=== PATIENT | female | born 1985 | race Native Hawaiian/Other Pacific Islander ===

== ENCOUNTER 2016-09-25 06:12 | Inpatient (IN) | payer MEDICAID ==
[2016-09-25 06:18] VITALS: BMI 33.5
[2016-09-25] MEDS: Lactated Ringer's 1,000 ML IV SCH ×2 (06:45→19:55)
[2016-09-25] MEDS ORDERED: cefOXitin IV 2 gm in Dextrose 2 GM/50 ML BAG IVPB ONE ×2 (06:49→08:10)
[2016-09-25] MEDS ORDERED: Sodium Citrate/Citric Acid 15 ml Sol PO ONE (06:49)
--- NOTE | 2016-09-25 06:57 | OBADHP ---
Datetime: 09/25/2016 06:52 Admit Comment, IP Provider: at 39weeks her for schehuled c/s, no ctxs, vb, lof,+fm. obhx 1 x sab, 1 x c/s pmh den med pnv all nkda psh c/s soch de a/p at 39weeks schuled repeat c/s and btl npo/ivf labs pain management skin anibiotics anthesia aware dr [place] will take informed consent Pelvic Type - PN: Adequate Extremities - PN: Normal Abdomen - PN: Normal Back - PN: Normal Breast - PN: Normal Lungs - PN: Normal Heart - PN: Normal Thyroid - PN: Normal Neurologic - PN: Normal HEENT - PN: Normal General - PN: Normal FHR - Baseline A Provider: 130 Contraction Comments Provider: occ Comments, ACOG Physical Exam: gravid,non gemma ext no edema,no calf ten IP Hx Assessment: The History has been Reviewed and is Current Vital Signs Provider: Reviewed; Within Normal Limits IP Chief Complaint: Scheduled Section NICHD Variability Prov Fetus A: Moderate 6-25bpm NICHD Accel Fetus A IP Provider: [id number] FHR Category Provider Fetus A: Category I Genitourinary Exam: Normal DTRs - PN: Normal EGA AdmitDate IP: 39.0 IP Adm Impression: Term, intrauterine IP Admit Plan: Admit to unit; Initiate Section protocol
[2016-09-25 07:47] LABS: INR 0.9; PARTIAL THROMBOPLASTIN TIME 31 SECONDS (21-34)
[2016-09-25 07:52] LABS: CHLORIDE 103 mmol/L (98-107); POTASSIUM 3.7 mmol/L (3.6-5.2); SODIUM 135 mmol/L (132-148)
[2016-09-25 07:54] LABS: AST/SGOT 27 U/L (14-36); BILIRUBIN,DIRECT 0.5 mg/dL (0.0-0.4); BILIRUBIN,TOTAL 0.8 mg/dL (0.2-1.3); CARBON DIOXIDE 22 mmol/L (22-30); GFR AFRICAN-AMERICAN > 60
[2016-09-25 07:55] LABS: ALKALINE PHOSPHATASE 105 U/L (38-126); ALT/SGPT 15 U/L (9-52); BLOOD UREA NITROGEN 8 mg/dL (7-17); CALCIUM 8.8 mg/dl (8.6-10.4); GLUCOSE,RANDOM 77 mg/dL (65-105); TOTAL PROTEIN 7.5 g/dL (6.3-8.3)
[2016-09-25 07:58] LABS: BASO # 0.1 K/uL (0.0-0.2); BASO % 0.7 % (0.0-2.0); EOS # 0.2 K/uL (0.0-0.7); EOS % 1.8 % (0.0-4.0); HEMATOCRIT 36.2 % (34.0-47.0); LYMPH # 1.5 K/uL (1.0-4.3); LYMPH % 13.4 % (20.0-40.0); MEAN CORPUSCULAR HEMOGLOBIN 31.5 pg (27.0-31.0); MEAN CORPUSCULAR HGB CONC 33.9 g/dL (33.0-37.0); MEAN PLATELET VOLUME 7.6 fL (7.2-11.7); MONO # 0.9 K/uL (0.0-0.8); MONO % 7.9 % (0.0-10.0); NRBC % 0.3 % (0.0-2.0); RED CELL DISTRIBUTION WIDTH 14.1 % (11.5-14.5); WHITE BLOOD COUNT 11.1 K/uL (4.8-10.8)
[2016-09-25] MEDS ORDERED: Sodium Citrate/Citric Acid 15 ml Sol ONE (08:09)
[2016-09-25] MEDS ORDERED: Oxytocin 20 units in LR 2,000 ML IV ONE (08:09)
[2016-09-25 08:15] LABS: MEAN CELL VOLUME 93.1 fL (81.0-99.0)
[2016-09-25 08:18] LABS: RBC URINE 4 /hpf (0-3); URINE BACTERIA RARE (<OCC); URINE BILIRUBIN NEGATIVE (NEGATIVE); URINE BLOOD NEGATIVE (NEGATIVE); URINE COLOR Yellow (YELLOW); URINE GLUCOSE (UA) NORMAL (Normal); URINE KETONE NEGATIVE (NEGATIVE); URINE LEUKOCYTE ESTERASE 2+ Leu/uL (Negative); URINE PROTEIN NEGATIVE (NEGATIVE); URINE UROBILINOGEN NORMAL mg/dL (0.2-1.0); WBC URINE 19 /hpf (0-5)
[2016-09-25] MEDS ORDERED: Morphine 1 mg/ml preservative-free Inj(Duramorph) ONE (08:33)
[2016-09-25] MEDS ORDERED: DiphenhydrAMINE 50 mg/ml Inj IVP PRN (09:29)
[2016-09-25] MEDS ORDERED: HYDROmorphone 0.5 mg/0.5 ml ISec IVP PRN (09:29)
[2016-09-25] MEDS ORDERED: Dexamethasone 4 mg/1 ml IVP PRN (09:29)
[2016-09-25] MEDS ORDERED: Oxycodone/Acetaminophen 5/325 mg Tab PO PRN (10:40)
[2016-09-25] MEDS ORDERED: cefOXitin IV 2 gm in Dextrose 2 GM/50 ML BAG IVPB SCH (10:45)
--- NOTE | 2016-09-25 11:21 | OBDS ---
DELIVERY PERSONNEL Delivery Doctor: Mariela Day MD Scrub Nurse: Misha Briseno RN Section Repairer: Dolores Austin RN/ Matthew Hanson RN Anesthesiologist: Dr. Doe MATERNAL INFORMATION Delivery Anesthesia: Spinal Medications in Delivery: pitocin Maternal Complications: None Provider Comments: Repeat csection and btl done ebl 700cc apgars 9/9 at 1 and 5 min of life patient and stable LABOR SUMMARY EDC: 10/02/2016 00:00 No. Babies in Womb: 1 Attempted: No LABOR INFORMATION Reason for Induction: Not Applicable Oxytocin: N/A Group B Beta Strep: Done, Result Unknown Antibiotics # of Doses: 1 Antibiotics Time of Last Dose: 843 Steroids Given: None Reason Steroids Not Administered: Not Applicable MEMBRANES Membranes Rupture Method: Artificial Rupture of Membranes: 09/25/2016 09:12 Length of Rupture (hrs): 0.00 Amniotic Fluid Color: Clear Amniotic Fluid Amount: Moderate Amniotic Fluid Odor: Normal STAGES OF LABOR Stage 3 hrs: 0 Stage 3 min: 1 CSECTION DELIVERY Primary Indication: Repeat Elective CSection Urgency: Elective CSection Incidence: Repeat Labor: No Labor Elective: N/A CSection Incision: Lower Uterine Transverse Sterilization Procedure: [place] Uterine Closure: Single-layer closure BABY A INFORMATION Delivery Date/Time: 09/25/2016 09:12 Method of Delivery: Born in Route : No : N/A Forceps: N/A Vacuum Extraction: N/A Shoulder Dystocia : No SHOULDER DYSTOCIA BABY A Infant Delivery Date/Time: 09/25/2016 09:12 PRESENTATION/POSITION BABY A Presentation: Cephalic Cephalic Presentation: Vertex Vertex Position: Left Occipital Anterior Breech Presentation: N/A PLACENTA INFORMATION BABY A Placenta Delivery Time : 09/25/2016 09:13 Placenta Method of Delivery: Manual Removal Placenta Status: Delivered SCORES BABY A Heart Rate 1 min: >100 bpm Resp Effort 1 min: Good Cry Reflex Irritability 1 min: Cough or Sneeze or Pulls Away Muscle Tone 1 min: Active Motion Color 1 min: Body [place], Extremities Blue SCORE 1 MIN: 9 Heart Rate 5 min: >100 bpm Resp Effort 5 min: Good Cry Reflex Irritability 5 min: Cough or Sneeze or Pulls Away Muscle Tone 5 min: Active Motion Color 5 min: Body [place], Extremities Blue SCORE 5 MIN: 9 INFORMATION BABY A Gestational Age at Delivery: 39.0 Gestational Status: Term Outcome : Liveborn Infant Condition : Stable Sex: Male IDENTIFICATION/MEDS BABY A ID Band Number: [id number] ID Band Location: Left Leg; Left Arm Sensor Applied: Yes Sensor Number: [id number] Sensor Location : Cord Clamp Vitamin K Given : Aquamephyton 0.5 mg IM; Left Thigh Erythromycin Given: Given Both Eyes WEIGHT/LENGTH BABY A Infant Birthweight (gms): 3390 Weight (lb): 7 Infant Weight (oz): 8 Infant Length Inches: 19.25 Length cms: 48.9 CORD INFORMATION BABY A No. Cord Vessels: 3 Nuchal Cord : N/A Cord Blood Taken: Yes Infant Suction: Mouth; Nose ASSESSMENT BABY A Complications: None Physical Findings at Delivery: Within Normal Limits Infant Respirations: Appears Normal Prison Psychiatrist/ALS Called : No Infant Care By: Mariela Grace RN Transferred To: Remains with Mother
--- NOTE | 2016-09-25 11:22 | OP ---
PROCEDURE DATE: 09/25/2016 PREOPERATIVE DIAGNOSES: 1. Previous section. 2. Term intrauterine . 3. Multiparity, requesting sterilization. POSTOPERATIVE DIAGNOSES: 1. Previous section. 2. Term intrauterine . 3. Multiparity, requesting sterilization. PROCEDURE PERFORMED: Repeat low-transverse section and bilateral tubal ligation. SURGEON: Ervin Day MD CONFIGURATION RELEASE MANAGER: Dr. Patrick Melara and Dr. Lizz DO, PGY-1. Please note that the procedure required a surgical endoscopist to assist with the entry into the abdomi nal cavity, to assist with the exposure of the tissues and to assist with the delivery of the infant and closure of the abdominal wall. The surgical assistants were present and scrubbed for the entire duration of the procedure. FINDINGS: A viable male with weight of 7 pounds 8 ounces, Apgars of 9 at 1 minute and 9 at 5 minutes, normal uterus, tubes, and ovaries bilaterally. SPECIMEN: Placenta and portion of right and left fallopian tubes. COMPLICATIONS: None. ESTIMATED BLOOD LOSS: 700 mL. PROCEDURE IN DETAIL: After informed consent was obtained, the patient was taken to the operating [facility] where spinal anesthesia was placed by the anesthesia team, which is Dr. Gale. She was thereafter placed in dorsal supine position with a leftward tilt. A Galloway catheter was confirmed to be drainin g clear urine. She was then prepped and draped in the usual sterile manner. After it was confirmed that she had adequate anesthesia, a skin incision was made in the previous Pfannenstiel incision and this was carried down to the underlying layer of the fascia with the help of the Bovie. The fascia w as then incised in the midline. The incision extended laterally with the help of Bovie as well. The superior aspect of the fascial incision was then grasped with Kirsty clamps, elevated, and the under lying rectus muscles dissected off. Attention was then turned to the inferior aspect of the fascial incision, then was grasped with Kirsty clamps, elevated, and the underlying rectus muscles dissected off. The rectus muscle was then in the midline and the peritoneum was picked up with hemos tatic clamps and entered sharply with Metzenbaum scissors. The peritoneal incision was extended supe riorly and inferiorly with good visualization of bladder. The bladder blade was then inserted and ve sicouterine peritoneum identified. A transverse incision was made over the vesicouterine peritoneum with the help of Metzenbaum scissors and this incision was extended laterally sharply and a bladder f lap was thereafter created. The bladder blade was then reinserted and the lower uterine segment iden tified. A transverse incision was made over the lower uterine segment with the help of a fresh scalp el. The incision was extended laterally bluntly. The membranes were ruptured and clear amniotic flu id was noted. The 's head was then delivered atraumatically. Nose and mouth were suctioned an d the body and the shoulders were delivered atraumatically. The cord was then clamped and cut and th e was handed over to the waiting pediatricians. Cord blood was collected. The placenta was m anually removed. The uterus was then exteriorized and cleared of all clots and debris. Uterine inci day was repaired with 0 Polysorb in a running-locked fashion. Adequate hemostasis was noted from th e uterine incision repair site. The right fallopian tube was then grasped with [place]'s and a loop was formed using 2-0 plain. A second knot was placed to secure the first loop. The loop was thereaf ter excised and thereafter tubal ligation on the right side was performed using [place] technique. S imilar procedure was repeated with the left fallopian tube. The uterus was then returned to the sierra ent's abdomen and the gutters and the cul-de-sac was irrigated and suctioned. The site of tubal liga tion was inspected for hemostasis and adequate hemostasis was noted from it. The uterine incision re pair site was reinspected for hemostasis and bleeding was noted from the mid section of the repair. This was suture ligated using 0 Monocryl using [id number] sutures. The peritoneum was closed wi th 2-0 Polysorb in a running fashion. The muscle layer was reapproximated with 2-0 Polysorb in a con tinuous manner. The fascia was closed with 0 Vicryl in a running fashion. The subcutaneous tissue w as reapproximated with 2-0 Polysorb in a running fashion. The skin was closed with 4-0 Monocryl in a subcuticular manner. The Steri-Strips were applied over the skin incision. Sponge, lap, needle, an d instrument count was correct x 3 as reported to me. Dressing was applied and the patient was taken to the recovery room in stable condition. The Galloway catheter was left inside for postop bladder jessica zaida. Ervin Day MD cc: [id number] TT: 09/25/2016 11:21:32 rodolfo
[2016-09-25 12:23] LABS: FDP QUANTITY <10 ug/mL (<10)
[2016-09-25 12:24] LABS: FDP INTERPRETATION NEGATIVE (NEGATIVE)
[2016-09-25] MEDS: Oxycodone/Acetaminophen 5/325 mg Tab PO PRN (15:41)
[2016-09-25] MEDS: cefOXitin IV 2 gm in Dextrose 2 GM/50 ML BAG IVPB SCH ×2 (16:53→23:50)
[2016-09-26 08:02] LABS: BASO % 0.2 % (0.0-2.0); EOS # 0.1 K/uL (0.0-0.7); EOS % 0.3 % (0.0-4.0); HEMATOCRIT 33.3 % (34.0-47.0); LYMPH # 0.9 K/uL (1.0-4.3); LYMPH % 5.3 % (20.0-40.0); MEAN CELL VOLUME 93.1 fL (81.0-99.0); MEAN CORPUSCULAR HEMOGLOBIN 31.5 pg (27.0-31.0); MEAN CORPUSCULAR HGB CONC 33.8 g/dL (33.0-37.0); MEAN PLATELET VOLUME 7.2 fL (7.2-11.7); MONO # 1.4 K/uL (0.0-0.8); PLATELET COUNT 256 K/uL (130-400); RED CELL DISTRIBUTION WIDTH 13.9 % (11.5-14.5)
[2016-09-26 08:10] LABS: WHITE BLOOD COUNT 17.5 K/uL (4.8-10.8)
[2016-09-26] MEDS: cefOXitin IV 2 gm in Dextrose 2 GM/50 ML BAG IVPB SCH (08:23)
[2016-09-26] MEDS: Oxycodone/Acetaminophen 5/325 mg Tab PO PRN ×2 (08:31→14:12)
--- NOTE | 2016-09-26 09:01 | OBPPN ---
Datetime: 09/26/2016 08:48 PP Pain Prov: Within normal limits PP Nausea Prov: Denies PP Flatus Prov: No PP BM Prov: No PP Breasts Prov: Normal PP Heart Prov: Normal PP Lungs Prov: Normal PP Abdomen/Uterus Prov: Normal PP Lochia Prov: Normal PP Vulva/Perineum Prov: Not Done PP CVA Tenderness Prov: Normal PP Extremities Prov: Normal PP C/S Incision Prov: Normal PP Progress Prov: Normal PP Comments Phys Exam Prov: Skin: warm, dry, intact Abdomen: (+) BS. Softly distended. Fundus firm, mobile, mild and appropriately tender at umbilicus . Incision with subcuticular - clean, dry iintact. Steri strips in place. Mild lochia rubra. Extremities: no calf tenderness All other systems reviewed and are negative PP Impression Prov: Normal progression PP Plan Prov: Continue present management PP Progress Note Prov: Patient received in room 452, sitting up in chair. Incisional pain 7/10; reli eved with pain meds. Breast- and bottle feeding for now; plans to breastfeed exclusively P.E.: as above. - POD#1 H/H 11.2/33.3 Rh(+) Assessment: POD#1 31 y.o. P2012, S/P repeat C/S with BTL. Afebrile, vital signs stable. Returning GI and functions. H/H noted; patient is clinically stable. Plan: 1) encourage to ambulate in hallways 2) Continue present post-op management Vital Signs Provider PP: Reviewed
[2016-09-26 09:45] LABS: NEUTROPHIL 81 % (50-75); TOTAL CELLS COUNTED 100
[2016-09-26] MEDS: Simethicone 80 mg Chewtab PO SCH ×2 (10:30→14:13)
[2016-09-26] MEDS: Prenatal Multivit/Folic Acid/Iron Tab PO SCH (10:30)
--- NOTE | 2016-09-27 09:57 | OBPPN ---
Datetime: 09/27/2016 09:52 PP Pain Prov: Within normal limits PP Nausea Prov: Denies PP Flatus Prov: Yes PP BM Prov: No PP Breasts Prov: Normal PP Heart Prov: Normal PP Lungs Prov: Normal PP Abdomen/Uterus Prov: Normal PP Lochia Prov: Normal PP Vulva/Perineum Prov: Normal PP CVA Tenderness Prov: Normal PP Extremities Prov: Normal PP C/S Incision Prov: Normal PP Progress Prov: Normal PP Comments Phys Exam Prov: Abdomen: soft, appropriate incisional tenderness. Incision C/D/I. Good b owel sounds. PP Impression Prov: Normal progression PP Plan Prov: Continue present management PP Progress Note Prov: Stable . Anticipate discharge tomorrow. IP PP Procedures: None Vital Signs Provider PP: Reviewed; Within Normal Limits Vital Signs Provider Details PP: hgb 11.2g/dl
[2016-09-27] MEDS: Oxycodone/Acetaminophen 5/325 mg Tab PO PRN (23:12)
[2016-09-27] MEDS: Simethicone 80 mg Chewtab PO SCH (23:18)
[2016-09-28] MEDS: Oxycodone/Acetaminophen 5/325 mg Tab PO PRN (05:55)
[2016-09-28 08:42] VITALS: BP 133/85; PULSE 94; RESP 18; TEMP 97.9; O2SAT 99
[2016-09-28] MEDS: Simethicone 80 mg Chewtab PO SCH (09:10)
[2016-09-28] MEDS: Prenatal Multivit/Folic Acid/Iron Tab PO SCH (09:11)
--- NOTE | 2016-09-28 12:27 | OBPPN ---
Datetime: 09/28/2016 12:15 PP Pain Prov: Within normal limits PP Nausea Prov: Denies PP Flatus Prov: Yes PP Breasts Prov: Normal PP Heart Prov: Normal PP Lungs Prov: Normal PP Abdomen/Uterus Prov: Normal PP Lochia Prov: Normal PP Vulva/Perineum Prov: Normal PP CVA Tenderness Prov: Normal PP Extremities Prov: Normal PP C/S Incision Prov: Normal PP Progress Prov: Normal PP Comments Phys Exam Prov: Abd: Soft, NT, BS- present UT- firm Incision- Clean and dry PP Impression Prov: Normal progression PP Plan Prov: Discharge PP Progress Note Prov: S/P Delivery, POD #3 Clinically Stable. Plan: Discharge home Vital Signs Provider PP: Reviewed
--- NOTE | 2016-09-28 12:31 | OBDCSUM ---
Datetime: 09/28/2016 08:35 Discharged to, Provider: Home Follow up at, Provider: [facility] Disch Instr Activity: Normal activity Disch Instr Diet: Regular Discharge Diagnosis, Provider: Term Delivered Discharge Time: 09/28/2016 09:01 Follow up in weeks, Provider: 10-09-16 Disch Referrals: None Disch Activity Restrictions: No lifting; Minimize stair-climbing; No sexual activity; Nothing in vag [place], tampons, douche Discharge Comment, Provider: S/P Repeat Section, Clinically Stable. Discharge Diagnosis Prov Other: S/P Repeat Section, Clinically Stable.
== END 2016-09-28 13:15 | disposition home or self-care (01) | DRG 371 ==
LOC: C.4D 06:12 → C.4M 13:00
PROVIDERS: ADMIT Obstetrics & Gynecology; ATTEND Obstetrics & Gynecology
PROC: 0UB70ZZ Excision of Bilateral Fallopian Tubes, Open Approach (ICD-10-PCS; principal; 2016-09-25)
PROC: 10D00Z1 Extraction of Products of Conception, Low, Open Approach (ICD-10-PCS; 2016-09-25)
DX: O34.211 Maternal care for low transverse scar from previous cesarean delivery (principal); Z30.2 Encounter for sterilization; Z3A.39 39 weeks gestation of pregnancy; Z37.0 Single live birth